=== PATIENT | female | born 1950 | race Caucasian/White ===

== ENCOUNTER 2021-10-16 11:32 | Emergency (ER) | payer MEDICARE ==
[~2021-10-16] VITALS: Ht 165.1 cm; Wt 63.9 kg
[2021-10-16 11:40] VITALS: BP 133/87
[2021-10-16 12:00] VITALS: BP 122/99
[2021-10-16] MEDS ORDERED: OMNI-PAC300 MG PO (12:05)
[2021-10-16] MEDS ORDERED: PRAVASTATIN SOD20 MG PO (12:06)
[2021-10-16] MEDS ORDERED: PERCOCET1 TA4 PO (12:07)
[2021-10-16] MEDS ORDERED: OXYCODONE30 MG PO (12:07)
[2021-10-16] MEDS ORDERED: ZANTAC 150 PO (12:08)
[2021-10-16] MEDS ORDERED: CYMBALTA60 MG PO (12:08)
[2021-10-16] MEDS ORDERED: XANAX0.5 MG PO (12:08)
[2021-10-16 13:30] VITALS: BP 122/99
== END 2021-10-16 13:43 | disposition home or self-care (01) ==
LOC: ED 11:32
DX: M25.532 Pain in left wrist (principal); F41.9 Anxiety disorder, unspecified; F32.A Depression, unspecified; E78.5 Hyperlipidemia, unspecified; F17.210 Nicotine dependence, cigarettes, uncomplicated; V28.0XXA Motorcycle driver injured in noncollision transport accident in nontraffic accident, initial encounter; Y93.55 Activity, bike riding

== ENCOUNTER 2022-07-31 16:21 | Emergency (ER) | payer MEDICARE ==
[~2022-07-31] VITALS: Ht 165.1 cm; Wt 61.0 kg
[~2022-07-31 16:21] MED LIST: CYMBALTA60 MG PO; OMNI-PAC300 MG PO; OXYCODONE30 MG PO; PERCOCET1 TA4 PO; PRAVASTATIN SOD20 MG PO; XANAX0.5 MG PO; ZANTAC 150 PO
[2022-07-31 17:31] VITALS: BP 154/80
[2022-07-31] MEDS ORDERED: LINZESS145 MCG PO (17:50)
[2022-07-31] MEDS ORDERED: GABAPENTIN100 MG PO (17:54)
[2022-07-31] MEDS ORDERED: TRAZODONE50 MG PO (17:56)
[2022-07-31 20:09] VITALS: BP 159/91
[2022-07-31 20:37] VITALS: BP 159/91
== END 2022-07-31 20:39 | disposition home or self-care (01) ==
LOC: ED 16:21
DX: S00.83XA Contusion of other part of head, initial encounter (principal); S20.211A Contusion of right front wall of thorax, initial encounter; M79.641 Pain in right hand; E78.5 Hyperlipidemia, unspecified; F41.9 Anxiety disorder, unspecified; F32.A Depression, unspecified; G89.29 Other chronic pain; F17.200 Nicotine dependence, unspecified, uncomplicated; W18.30XA Fall on same level, unspecified, initial encounter; Y92.410 Unspecified street and highway as the place of occurrence of the external cause